=== PATIENT | male | born 1950 | race Caucasian/White ===

== ENCOUNTER 2016-04-12 05:38 | Outpatient (CLI) | payer BC ==
[~2016-04-12] VITALS: Ht 180.3 cm; Wt 97.1 kg
--- OUTSIDE RECORDS SUMMARY | 2016-04-12 05:56 | XMS REPORT | Continuity of Care Document ---
Author Author [facility] Address Unknown Phone Unavailable Allergies Medications Problems Date Dx Coded Attending Type Code Diagnosis Diagnosed By 08/09/2012 V03.1 TYPHOID VACCINE DX 08/09/2012 V05.3 TWINRIX DX 08/09/2012 AGUSTINA BATES DO V03.1 TYPHOID VACCINE DX 08/09/2012 AGUSTINA BATES DO V05.3 TWINRIX DX 08/09/2012 AGUSTINA BATES DO V03.1 TYPHOID VACCINE DX 08/09/2012 AGUSTINA BATES DO V05.3 TWINRIX DX 05/11/2015 CHARISSA VALDEZP Ot R10.11 Procedures Results Encounters ACCT No. Visit Date/Time Discharge Status Pt. Type Provider Facility Loc./Unit Complaint [id number] 07/12/2013 15:49:00 07/12/2013 23: 59:59 CLS Outpatient AGUSTINA BATES DO [id number] 01/25/2013 11:41:00 01/25/2013 23: 59:59 CLS Outpatient AGUSTINA BATES DO [id number] 08/09/2012 11:17:00 Document Registration
[2016-04-12] MEDS ORDERED: MULT-35 PO (08:55)
[2016-04-12] MEDS ORDERED: GLUC1CAP14 PO (08:55)
[2016-04-12] MEDS ORDERED: FISH1CAP15 PO (08:55)
== END 2016-04-12 09:00 ==
LOC: PREOP 05:38
PROVIDERS: ATTEND Surgery Pediatric Surgery
DX: Z01.818 Encounter for other preprocedural examination (principal); Z12.11 Encounter for screening for malignant neoplasm of colon

== ENCOUNTER 2016-04-13 10:33 | Day surgery (SDC) | payer BC ==
[~2016-04-13] VITALS: Ht 180.3 cm; Wt 97.1 kg
[~2016-04-13 10:33] MED LIST: FISH1CAP15 PO; GLUC1CAP14 PO; MULT-35 PO
--- NOTE | 2016-04-13 10:35 | Conscious Sedation/ASA ---
Conscious Sedation Pre-Proced Time Reviewed: 10:35 ASA Class: 2 Airway Mallampati Classification: ([place] appropriate class) I. II. III, IV Lungs Heart ASA score ASA 1: a normal healthy patient ASA 2: a patient with a mild systemic disease (mid diabetes, controlled hypertension, obesity ASA 3: a patient with a severe systemic disease that limits activity (angina , COPD, prior Myocardial infarction) ASA 4: a patient with an incapacitating disease that is a constant threat to life (CHF, renal failure) ASA 5: a moribund patient not expected to survive 24 hrs. (ruptured aneurysm) ASA 6: a declared brain patient whose organs are being harvested. For emergent operations, add the letter E after the classification Grade 2 Sedation Plan: Analgesia, Amnesia, Plan communicated to team members, Discussed options with patient/fam, Discussed risks with patient/fam Note The patient is an appropriate candidate to undergo the planned procedure, sedation, and anesthesia. The patient immediately re-assessed prior to indication. VELIA SHAW MD Apr 13, 2016 10:35 am
--- NOTE | 2016-04-13 10:36 | Progress Note-Pre Operative ---
Pre-Operative Progress Note H&P Reviewed The H&P was reviewed, patient examined and no changes noted. Date H&P Reviewed: Apr 13, 2016 Time H&P Reviewed: 10:35 Pre-Operative Diagnosis: screening colonoscopy VELIA SHAW MD Apr 13, 2016 10:36 am
--- OUTSIDE RECORDS SUMMARY | 2016-04-13 10:36 | XMS REPORT | Continuity of Care Document ---
Author Author [facility] Organization [facility] Address Unknown Phone Unavailable Care Team Providers Care Endless Track Vehicle Supervisor Name Role Phone LINDA HOYT DO PCP Insurance Providers Payer Name Policy Number Subscriber Name Relationship [facility] [id number] Maria Luisa Winn A 01 Advance Directives Directive Response Recorded Date/Time Advance Directives Yes 04/12/16 8:52am Health Care Power of Manager Of Manufacturing Yes 04/12/16 8:52am Resuscitation Status Full Code 04/12/16 8:52am Problems No problem information available. Medications Current Home Medications Medication Dose Units Route Directions Days/Qty Instructions Start Date Fish Oil/Dha/Epa 1 Each 1 Each Oral Daily 04/12/16 Multivitamin 1 Each 1 Each Oral Daily 04/12/16 Gluc Hcl/Csa/Tawanna Hy/Hyalur Ac 1 Each 1 Each Oral Daily 04/12/16 Social History Social History Problem Response Recorded Date/Time Alcohol Use Rarely Uses 04/12/2016 8:52am Recreational Drug Use No 04/12/2016 8:52am Recent Foreign Travel No 04/12/2016 8:52am Recent Infectious Disease Exposure No 04/12/2016 8:52am Sexually Transmitted Disease No 04/12/2016 8:52am HIV/AIDS No 04/12/2016 8:52am Smoking Status Never a Smoker 04/12/2016 8:52am Recent Hopitalizations No 04/12/2016 8:52am Sexually Transmitted Disease No 04/12/2016 8:52am Query Response Start Date Stop Date Smoking Status Never a Smoker Hospital Discharge Instructions No hospital discharge instructions. Plan of Care Discharge Date 04/12/16 9:00am Prescriptions See Medication Section Functional Status No functional status results. Allergies, Adverse Reactions, Alerts No known allergies. Immunizations No immunization records. Vital Signs Acute Vital Signs Vital Response Date/Time Height (Feet) 5 feet 04/12/2016 8:51am Height (Inches) 11.00 inches 04/12/2016 8:51am Height (Calculated Centimeters) 180.010313 cm 04/12/2016 8:51am Weight (Pounds) 214 pounds 04/12/2016 8:51am Weight (Ounces) 0.0 oz 04/12/2016 8:51am Weight (Calculated Grams) 98718.77 gm 04/12/2016 8:51am Weight (Calculated Kilograms) 97.413272 kilograms 04/12/2016 8:51am Calculated BMI 29.9 04/12/2016 8:51am Results No known relevant diagnostic tests, laboratory data and/or discharge summary. Procedures No known history of procedures. Encounters Encounter Location Arrival/Admit Date Discharge/Depart Date Attending Provider Departed Clinic [facility] 04/12/16 5:38am 04/12/16 9: 00am VELIA SHAW MD
--- OUTSIDE RECORDS SUMMARY | 2016-04-13 10:37 | XMS REPORT | Continuity of Care Document ---
Author Author [facility] Organization [facility] Address Unknown Phone Unavailable Care Team Providers Care Outside Machinist Name Role Phone LINDA HOYT DO PCP Insurance Providers Payer Name Policy Number Subscriber Name Relationship [facility] [id number] Maria Luisa Winn A 01 Advance Directives Directive Response Recorded Date/Time Advance Directives Yes 04/12/16 8:52am Health Care Power of Resolution Manager Yes 04/12/16 8:52am Resuscitation Status Full Code [...] 11.00 inches 04/12/2016 8:51am Height (Calculated Centimeters) 180.221634 cm 04/12/2016 8:51am Weight (Pounds) 214 pounds 04/12/2016 8:51am Weight (Ounces) 0.0 oz 04/12/2016 8:51am Weight (Calculated Grams) 46858.77 gm 04/12/2016 8:51am Weight (Calculated Kilograms) 97.690715 kilograms 04/12/2016 8:51am Calculated BMI 29.9 04/12/2016 8:51am Results No known relevant diagnostic tests, laboratory data and/or discharge summary. Procedures No known history of procedures. Encounters Encounter Location Arrival/Admit Date Discharge/Depart Date Attending Provider Departed Clinic [facility] 04/12/16 5:38am 04/12/16 9: 00am VELIA SHAW MD
[2016-04-13] MEDS ORDERED: NS IV 500 ML 500 ML IV PRN (10:40)
[2016-04-13] MEDS ORDERED: NS IV 1000 ML 1,000 ML ONE (10:44)
[2016-04-13] MEDS ORDERED: ONDANSETRON 4 MG/2 ML (SDV) Z0FRAN IV PRN (10:45)
[2016-04-13] MEDS ORDERED: HYDROcodone/APAP 5 MG/325 MG (LORTAB) TAB PO PRN (10:45)
[2016-04-13] MEDS ORDERED: LIDOCAINE JELLY 2% (XYLOCAINE) 5 ML TUBE MM PRN (10:45)
[2016-04-13] MEDS ORDERED: ACETAMINOPHEN 325 MG TABLET/CAPLET (TYLENOL) PO PRN (10:45)
[2016-04-13] MEDS ORDERED: NALOXONE 0.4 MG/ML 1 ML (NARCAN) VIAL IVP PRN (10:45)
[2016-04-13] MEDS ORDERED: FLUMAZENIL (ROMAZICON) 0.1 MG/ML 5 ML VIAL INJ PRN (10:45)
[2016-04-13] MEDS ORDERED: morphine INJ 10 MG/ML 1ML (SYR OR VIAL) IV PRN (10:45)
[2016-04-13 11:02] VITALS: BP 178/88
[2016-04-13] MEDS ORDERED: MIDAZOLAM 2 MG/2 ML (VERSED) VIAL ONE ×2 (11:58→11:59)
[2016-04-13] MEDS ORDERED: fentaNYL INJECTION 100 MCG/2 ML AMP ONE ×2 (11:58)
[2016-04-13] MEDS ORDERED: LIDOCAINE JELLY 2% (XYLOCAINE) 5 ML TUBE ONE (11:59)
[2016-04-13] MEDS: fentaNYL INJECTION 100 MCG/2 ML AMP IVP PRN ×4 (12:00→12:15)
[2016-04-13] MEDS: MIDAZOLAM 2 MG/2 ML (VERSED) VIAL IVP PRN ×2 (12:02→12:13)
--- NOTE | 2016-04-13 12:32 | Progress Note-Post Operative ---
Post-Operative Progess Note Pre-Operative Diagnosis screening colonoscopy Post-Operative Diagnosis chronic stage 2 ext and int hemorrhoids, mild-moderate sigmoid diverticulosis. Post-Op Procedure Note Date of Procedure: Apr 13, 2016 Name of Procedure: Colonoscopy Anesthesia Type CS Estimated blood loss (mL): VELIA Kwon MD Apr 13, 2016 12:32 pm
--- NOTE | 2016-04-13 12:35 | Discharge Inst-Surgical ---
D/C Lap Instructions-COLIN Follow Up 10 years Activity as tolerated High Fiber Diet 25g or more per day Avoid Alcohol, Caffeine, Spicy [place] and Acid foods. Drink 64 fluid oz or more of fluids per day. Symptoms to Report: Fever over 101 degree F, Nausea/Vomiting If any problems/questions: Contact your physician or go to Emergency Room VELIA SHAW MD Apr 13, 2016 12:35 pm
[2016-04-13 13:00] VITALS: BP 124/78
[2016-04-13 13:25] VITALS: BP 127/69
--- NOTE | 2016-04-14 12:53 | OPERATIVE REPORT ---
PROCEDURE PHYSICIAN: VELIA CLARK DATE OF PROCEDURE: 04/13/2016 ATTENDING PRIMARY CARE PHYSICIAN: Dr. Arevalo. PREOPERATIVE DIAGNOSIS: Screening colonoscopy. POSTOPERATIVE DIAGNOSIS: 1. Chronic, stage II external and internal hemorrhoids. 2. Mild to moderate sigmoid diverticulosis. PROCEDURE: Colonoscopy. SURGEON: Dr. Clark. ANESTHESIA: Conscious sedation. ESTIMATED BLOOD LOSS: Minimal. FINDINGS: 1. Chronic, stage II external and internal hemorrhoids, not actively edematous or inflamed and no bleeding. Normal sphincter tone was felt and there were no palpable masses. 2. There was a mild to moderate sigmoid diverticulosis with no mucosal inflammatory changes. There were no, polyps or any neoplasms identified throughout the colon or rectum. DISPOSITION: The patient tolerated procedure well. Mr. Elías Knowles is a 66-year-old male in need of a screening colonoscopy. His last colonoscopy was around 2008 and he was found to have diverticulosis, as well as some internal hemorrhoids and proctitis. He does not report any major issues with diarrhea nor constipation or abdominal pain. He also does not report any red blood per rectum or any dark tarry stools. He also does not report any family history of colon cancer. The patient was brought to the endoscopy suite, laid in left lateral decubitus position. After adequate IV pain and sedative medications and conscious sedation anesthesia, a digital rectal examination was performed. Chronic, stage II external and internal hemorrhoids were identified, which were not actively edematous or inflamed and no bleeding. Normal sphincter tone was felt and there were no palpable masses. The prostate gland was palpable and appeared normal. The endoscope was then intubated into the anus and the rectum gently insufflated. The endoscope was then advanced through the valves of Ch[place] of the rectum with no polyps or any neoplasms identified. The endoscope was advanced through the sigmoid colon where a mild to moderate sigmoid diverticulosis identified. There were no mucosal inflammatory changes to indicate any active diverticulitis. The endoscope was then advanced through the remainder of the descending, transverse, and ascending colon to the cecum. These segments were normal. There were no polyps or any neoplasms identified throughout the colon or rectum. The endoscope was then slowly withdrawn while taking a second look and suctioning residual air with no additional findings. The patient tolerated the procedure well. We will have him continue with medical management with a high fiber diet with at least 30 grams of fiber per day, as well as at least 64 fluid ounces of water daily to promote soft stools on a daily basis. No polyps were identified and he does not need another colonoscopy for another 10 years. Job ID: [id number] Dictated Date: 04/13/2016 12:39:11 Durable Medical Equipment Repairer Date: 04/14/2016 12:44:55 / aparna JADE
== END 2016-04-13 13:25 | disposition home or self-care (01) ==
LOC: ENDO 10:33
PROVIDERS: ATTEND Surgery Pediatric Surgery
DX: Z12.11 Encounter for screening for malignant neoplasm of colon (principal); K57.90 Diverticulosis of intestine, part unspecified, without perforation or abscess without bleeding; K64.1 Second degree hemorrhoids

== ENCOUNTER → 2016-06-17 | Outpatient (CLI) | payer BC ==
--- NOTE | 2016-06-17 11:51 | Diagnostic Imaging Report ---
Thoracic spine. INDICATION: Back pain. AP, lateral, and swimmer's views were obtained. There are no prior studies available for comparison. The lateral view shows the vertebral body height and alignment to be generally within normal limits. There is minimal offset of the anterior superior endplate of T10. This finding is unlikely to be related to an acute fracture. Even so, if further imaging is desired, then MRI would be recommended. The 20 to 30% compression deformity of L1 seen on the lumbar spine exam performed in conjunction with this study is again visualized. This injury may well be subacute in nature. MRI would be recommended for further evaluation of this area as well. The intervertebral spaces are fairly well maintained. There is mild curvature of the lower thoracic spine, convex to the right. There is no sign of a paraspinal mass. IMPRESSION: 1. There is no acute bony abnormality identified with certainty. The minimal offset of the anterior superior endplate of T10 is unlikely to be related to an acute injury. Additional considerations as above. 2. The compression deformity at L1 seen previously is again visualized. Dictated by: Dictated on workstation # [id number]
--- NOTE | 2016-06-17 11:56 | Diagnostic Imaging Report ---
Lumbar spine 11:49 AM. INDICATION: Back pain. AP, lateral, and spot lateral views were obtained. The lateral view reveals that there is a 20-30% compression deformity of the superior endplate of L1. This finding was not present on the prior CT abdomen/pelvis exam 10/16/2007. The age of this injury is indeterminate, but I am suspicious that it may be subacute in nature. If further imaging is desired, then MRI would be recommended. The other vertebral body heights are within normal limits, and the intervertebral spaces are fairly well maintained. There is no sign of a paraspinal mass. There is mild symmetrical sclerosis of the sacroiliac joints. IMPRESSION: 1. There is a 20 to 30% compression deformity at the superior endplate of L1. While the age of this injury is indeterminate, it may well be subacute in nature. Recommendations as above. 2. There is no acute bony abnormality appreciated otherwise. Dictated by: Dictated on workstation # [id number]
== END ==
LOC: RAD 11:09
PROVIDERS: ATTEND Nurse Practitioner
DX: M54.5 Low back pain (principal); M54.6 Pain in thoracic spine
CPT/HCPCS: 72072; 72100

== ENCOUNTER → 2016-06-23 | Outpatient (CLI) | payer BC | LOC: RAD 10:33 | PROVIDERS: ATTEND Family Medicine | DX: M54.5 Low back pain (principal) ==

== ENCOUNTER → 2016-07-21 | Outpatient (CLI) | payer BC ==
--- NOTE | 2016-07-21 15:29 | Diagnostic Imaging Report ---
EXAMINATION: DEXA scan. INDICATION: Osteopenia TECHNIQUE: Bone mineral density estimated based on dual energy radiography over the lumbar spine and femoral necks, was performed. FINDINGS: The lumbar spine T-score is -2.3. T-score over the left femoral neck is -1.1 and on the right is -1.2. IMPRESSION: Osteopenia.. Dictated by: Dictated on workstation # [id number]
== END ==
LOC: RAD 09:59
PROVIDERS: ATTEND Orthopaedic Surgery
DX: M85.88 Other specified disorders of bone density and structure, other site (principal)
CPT/HCPCS: 77080

== ENCOUNTER → 2018-03-20 | Outpatient (CLI) | payer MEDICARE, OTHER ==
--- NOTE | 2018-03-20 15:42 | Diagnostic Imaging Report ---
EXAMINATION: Ultrasound noninvasive extremity bilateral. INDICATION: Bilateral feet neuropathy. FINDINGS: The ankle-brachial indices were obtained in the usual manner. The ankle-brachial index on the right is 1.23 and on the left 1.18 (normal 1.00 or greater). It should be noted that the ankle-brachial index for the dorsalis pedis artery on the right is 0.93 and on the left 0.82. If clinical concern regarding an underlying abnormality persists and further imaging is desired, then CT of the aorta with bilateral runoffs will be recommended. IMPRESSION: The ankle-brachial indices are within normal limits. However when using the dorsalis pedis artery, the indices are somewhat below normal limits. Recommendations as above. Dictated by: Dictated on workstation # [id number]
== END ==
LOC: RAD 10:26
PROVIDERS: ATTEND Nurse Practitioner Family
DX: G57.83 Other specified mononeuropathies of bilateral lower limbs (principal)
CPT/HCPCS: 93922

== ENCOUNTER → 2021-06-21 | Outpatient (CLI) | payer MEDICARE, OTHER | LOC: CARD 11:00 | PROVIDERS: ATTEND Family Medicine | DX: I35.0 Nonrheumatic aortic (valve) stenosis (principal); I51.7 Cardiomegaly | CPT/HCPCS: 93306 ==